=== PATIENT | female | born 1995 | race Caucasian/White ===

== ENCOUNTER 2017-12-09 02:26 | Observation (INO) | payer OTHER ==
[2017-12-09 03:19] VITALS: O2SAT 99
[2017-12-09] MEDS ORDERED: METHYLERGONOVINE MALEATE 0.2 MG/ML SOL IM PRN (03:47)
[2017-12-09] MEDS ORDERED: SODIUM CHLORIDE 0.9% FLUSH 10 ML SOL IV PRN (03:47)
[2017-12-09] MEDS ORDERED: LACTATED RINGERS 1,000 ML IV PRN (03:47)
[2017-12-09] MEDS ORDERED: FENTANYL 100MCG/2ML SOL IV PRN (03:47)
[2017-12-09] MEDS ORDERED: MEPIVACAINE HCL 1% MPF 30 ML SOL INFIL PRN (03:47)
[2017-12-09] MEDS ORDERED: CARBOPROST 250 MCG/ML SOL IM PRN (03:47)
[2017-12-09] MEDS ORDERED: OXYTOCIN 10000 MU/ML SOL IM PRN (03:47)
[2017-12-09] MEDS: SODIUM CHLORIDE 0.9% FLUSH 10 ML SOL IV SCH ×3 (04:00→23:27)
[2017-12-09 04:07] LABS: BASOPHILS % (AUTO) 0 % (0-3); EOSINOPHILS % (AUTO) 1 % (0-9); HEMATOCRIT 31 % (35-47); MEAN CORPUSCULAR HGB CONC 32.1 gm/dl (32.0-36.0); MONOCYTES % (AUTO) 7.1 % (0-12); NEUTROPHILS % (AUTO) 71.7 % (37-80)
[2017-12-09 04:11] LABS: MEAN CORPUSCULAR VOLUME 71 fL (81-99)
[2017-12-09 04:20] LABS: ANISOCYTOSIS SLIGHT AMT; HYPOCHROMASIA PRESENT; OVALOCYTES PRESENT; TARGET CELLS PRESENT
[2017-12-09 07:34] VITALS: RESP 20
[2017-12-10] MEDS: SODIUM CHLORIDE 0.9% FLUSH 10 ML SOL IV SCH (05:54)
[2017-12-10 13:12] VITALS: BP 125/82; PULSE 102; TEMP 97.6
== END 2017-12-10 16:15 | disposition home or self-care (01) ==
LOC: OB 02:26
PROVIDERS: ADMIT Family Medicine; ATTEND Family Medicine
DX: Z34.90 Encounter for supervision of normal pregnancy, unspecified, unspecified trimester (principal)
CPT/HCPCS: 36415; 59025; 85025; J0670; J2590

== ENCOUNTER 2017-12-13 19:11 | Observation (INO) | payer OTHER ==
[2017-12-13 19:35] VITALS: BP 129/78; PULSE 90; TEMP 98.8
== END 2017-12-13 20:32 | disposition home or self-care (01) ==
LOC: OB 19:11
PROVIDERS: ADMIT Family Medicine; ATTEND Family Medicine
DX: O47.9 False labor, unspecified (principal)
CPT/HCPCS: 59025; 84112

== ENCOUNTER 2017-12-21 11:54 | Inpatient (IN) | payer OTHER ==
[2017-12-21] MEDS ORDERED: LACTATED RINGERS 1,000 ML IV PRN (11:56)
[2017-12-21] MEDS ORDERED: METHYLERGONOVINE MALEATE 0.2 MG/ML SOL IM PRN (11:56)
[2017-12-21] MEDS ORDERED: OXYTOCIN 10000 MU/ML SOL IM PRN (11:56)
[2017-12-21] MEDS ORDERED: FENTANYL 100MCG/2ML SOL IV PRN (11:56)
[2017-12-21] MEDS ORDERED: CARBOPROST 250 MCG/ML SOL IM PRN (11:56)
[2017-12-21] MEDS ORDERED: MEPIVACAINE HCL 1% MPF 30 ML SOL INFIL PRN (11:56)
[2017-12-21] MEDS ORDERED: SODIUM CHLORIDE 0.9% FLUSH 10 ML SOL IV PRN (11:56)
[2017-12-21] MEDS: SODIUM CHLORIDE 0.9% FLUSH 10 ML SOL IV SCH (12:20)
[2017-12-21] MEDS ORDERED: EPHEDRINE SULFATE 50 MG/ML SOL IV PRN (12:26)
[2017-12-21] MEDS ORDERED: DIPHENHYDRAMINE 50 MG/ML SOL IV PRN (12:26)
[2017-12-21] MEDS ORDERED: NALBUPHINE HCL 20 MG/ML SOL IV PRN (12:26)
[2017-12-21] MEDS ORDERED: NALOXONE HYDROCHLORIDE 0.4 MG/ML SOL IV PRN (12:26)
[2017-12-21] MEDS ORDERED: LACTATED RINGERS 1,000 ML IV SCH (12:30)
[2017-12-21 12:57] LABS: BASOPHILS % (AUTO) 1 % (0-3); EOSINOPHILS % (AUTO) 2 % (0-9); HEMATOCRIT 31 % (35-47); MEAN CORPUSCULAR HGB CONC 30.9 gm/dl (32.0-36.0); MONOCYTES % (AUTO) 6.8 % (0-12); NEUTROPHILS % (AUTO) 72.9 % (37-80)
[2017-12-21 13:51] LABS: MEAN CORPUSCULAR VOLUME 71 fL (81-99)
[2017-12-21 13:52] LABS: ANISOCYTOSIS SLIGHT AMT
[2017-12-21] MEDS ORDERED: TERBUTALINE SULFATE 1 MG/ML SOL SC PRN (15:05)
[2017-12-21] MEDS ORDERED: OXYTOCIN 10000 MU/ML 20,000 MU in LACTATED RINGERS 1,000 ML IV SCH (15:15)
[2017-12-21] MEDS ORDERED: OXYTOCIN 10000 MU/ML SOL ONE (15:21)
[2017-12-21] MEDS ORDERED: LACTATED RINGERS 1,000 ML ONE (15:21)
[2017-12-21] MEDS: LACTATED RINGERS 1,000 ML IV SCH ×3 (15:38→21:35)
[2017-12-21] MEDS ORDERED: AMPICILLIN 1 GM PDS 2 GM in SODIUM CHLORIDE 0.9% 100 ML 100 ML IV SCH (16:45)
[2017-12-21] MEDS ORDERED: AMPICILLIN 1 GM PDS ONE ×2 (17:02→20:33)
[2017-12-21] MEDS ORDERED: LIDOCAINE HCL 2% MPF SOL ONE (21:20)
[2017-12-21] MEDS ORDERED: FENTANYL 250 MCG/ 5ML SOL ONE (21:20)
[2017-12-21] MEDS ORDERED: ROPIVACAINE HYDROCHLORIDE 5 MG/ML SOL ONE (21:21)
[2017-12-21] MEDS: AMPICILLIN 1 GM PDS 1 GM in SODIUM CHLORIDE 0.9% 100 ML 100 ML IV SCH (21:42)
[2017-12-21] MEDS ORDERED: EPHEDRINE SULFATE 50 MG/ML SOL ONE (21:53)
[2017-12-22] MEDS ORDERED: AMPICILLIN 1 GM PDS ONE ×2 (01:57→05:33)
[2017-12-22] MEDS: AMPICILLIN 1 GM PDS 1 GM in SODIUM CHLORIDE 0.9% 100 ML 100 ML IV SCH ×2 (02:21→05:42)
[2017-12-22] MEDS ORDERED: LIDOCAINE HCL 2% MPF SOL ONE (03:32)
[2017-12-22] MEDS: LACTATED RINGERS 1,000 ML IV SCH ×3 (04:59→16:36)
[2017-12-22] MEDS ORDERED: WITCH HAZEL 1 EA PAD TOP PRN (07:48)
[2017-12-22] MEDS ORDERED: METHYLERGONOVINE MALEATE 0.2 MG TAB PO PRN (07:48)
[2017-12-22] MEDS ORDERED: BISACODYL 10 MG SUP PR PRN (07:48)
[2017-12-22] MEDS ORDERED: APAP/HYDROCODONE 325/5 TAB PO PRN (07:48)
[2017-12-22] MEDS ORDERED: TEMAZEPAM 15MG 15 MG CAP PO PRN (07:48)
[2017-12-22] MEDS ORDERED: FLEET ENEMA PR PRN (07:48)
[2017-12-22] MEDS ORDERED: BENZOCAINE/MENTHOL 1 SPR TOP PRN (07:48)
[2017-12-22] MEDS: SODIUM CHLORIDE 0.9% FLUSH 10 ML SOL IV SCH ×3 (08:10→20:58)
[2017-12-22] MEDS: IBUPROFEN 600 MG TAB PO PRN ×2 (08:59→20:56)
[2017-12-22] MEDS: DOCUSATE SODIUM 100 MG SGL PO SCH ×2 (08:59→20:56)
[2017-12-23] MEDS: DOCUSATE SODIUM 100 MG SGL PO SCH ×2 (08:19→21:15)
[2017-12-23 11:52] LABS: ABO A
[2017-12-23 11:55] LABS: RH TYPE Negative
[2017-12-23] MEDS: FERROUS GLUCONATE 324 MG TABLET PO SCH ×2 (13:14→21:15)
[2017-12-23] MEDS: IBUPROFEN 600 MG TAB PO PRN (16:59)
[2017-12-24 01:04] VITALS: TEMP 97.2
[2017-12-24] MEDS: DOCUSATE SODIUM 100 MG SGL PO SCH (08:49)
[2017-12-24] MEDS: IBUPROFEN 600 MG TAB PO PRN (08:49)
[2017-12-24] MEDS: FERROUS GLUCONATE 324 MG TABLET PO SCH (08:49)
[2017-12-24 10:50] VITALS: BP 124/80; PULSE 52; RESP 16; O2SAT 100
== END 2017-12-24 10:30 | disposition home or self-care (01) | DRG 560 ==
LOC: OB 11:54 → INTOOBSV 11:54 → UNDOADMOB 11:54 → OBSVTOIN 11:54
PROVIDERS: ADMIT Family Medicine; ATTEND Family Medicine
PROC: 10D07Z6 Extraction of Products of Conception, Vacuum, Via Natural or Artificial Opening (ICD-10-PCS; principal; 2017-12-22)
DX: O80 Encounter for full-term uncomplicated delivery (principal); Z37.0 Single live birth; Z3A.40 40 weeks gestation of pregnancy
CPT/HCPCS: 36415; 59025; 85018; 85025; 86900; 86901; 94762; 99070; J0290; J0670; J1200; J2590; J2795; J3010; J3105; A9270-GY; J3490